=== PATIENT | male | born 1995 | race American Indian/Alaskan Native ===

== ENCOUNTER 2017-08-27 01:52 | Emergency (ER) | payer OTHER ==
[2017-08-27 01:58] VITALS: RESP 16; TEMP 98.1
[2017-08-27] MEDS ORDERED: Bupivacaine 0.25% Inj(30mL) IJ STA (02:25)
--- NOTE | 2017-08-27 02:54 | ED PDOC ---
HPI: Dental Pain/Injury Time Seen by Provider: 08/27/17 02:25 Chief Complaint (Nursing): Dental Pain Chief Complaint (Provider): Toothache History Per: Patient History/Exam Limitations: no limitations Onset/Duration Of Symptoms: Days (two) Current Symptoms Are (Timing): Still Present Severity: Moderate Quality: Sharp, Tightness, "Pain" Additional Complaint(s): Pt presents with a toothache in the lower right rear of his mouth that began two days ago but was manageable. He states that he was awoken from his sleep about two hours ago from the intense pain; pt denies fever, bleeding or discharge. He states that he has not yet obtained a private dentist. Past Medical History Reviewed: Historical Data, Nursing Documentation, Vital Signs Vital Signs: Last Vital Signs Temp 98.1 F 08/27/17 01:57 Pulse 62 08/27/17 01:57 Resp 16 08/27/17 01:57 BP 139/78 08/27/17 01:57 Pulse Ox 100 08/27/17 01:57 - Family History Family History: States: Unknown Family Hx - Home Medications Home Medications: Ambulatory Orders Medication Instructions Recorded Acetaminophen with Codeine 1 tab PO QID #18 tablet 08/27/17 [Tylenol with Codeine #3 Tablet] - Allergies Allergies/Adverse Reactions: Allergies Allergy/AdvReac Type Severity Reaction Status Date / Time No Known Allergies Allergy Verified 08/27/17 01:58 Review of Systems ROS Statement: Except As Marked, All Systems Reviewed And Found Negative ENT: Positive for: Other (tooth pain/dental pain) Physical Exam - Reviewed Nursing Documentation Reviewed: Yes Vital Signs Reviewed: Yes - Physical Exam Appears: Positive for: Well Head Exam: Positive for: ATRAUMATIC, NORMAL INSPECTION Skin: Positive for: Normal Color, Warm, Dry ENT: Positive for: Other (tooth #32 is noted to have a joe at the the dorsal side through aproximately 10percent of the enamel. There is no dentene apparent ; there is no infection, abscess, discharge, drainage, trauma, bleeding or exudate noted) Cardiovascular/Chest: Positive for: Regular Rate, Rhythm, Chest Non Tender. Negative for: Edema, Bradycardia, Tachycardia Respiratory: Positive for: Normal Breath Sounds. Negative for: Decreased Breath Sounds, Accessory Muscle Use, Crackles, Rales, Rhonchi, Stridor, Wheezing , Respiratory Distress Pulses-Carotid (L): 2+ Pulses-Carotid (R): 2+ - ECG O2 Sat by Pulse Oximetry: 100 Procedures - Time-Out Type of Procedure: Alveolar Nerve Block Site of Procedure: right alveolar nerve Correct Patient (with visual ID + MR# on ID Band): Yes Correct Procedure: Yes Correct Site Marked: NA X-Ray Marked: NA Medication Reconciliation / Bloodwork / Allergies Checked: Yes - Additional Procedures Progress: A lower alveolar nerve block with sublingual nerve affect was given using 1cc of bupivacaine 0.25% without epinephrine. The patient tolerated the procedure well, noted immediate pain relief and no side effects. Disposition - Clinical Impression Clinical Impression: Dental caries, Tooth ache - Patient ED Disposition Is Patient to be Admitted: No Doctor Will See Patient In The: Office Counseled Patient/Family Regarding: Diagnosis, Need For Followup, Rx Given - Disposition Referrals: Daniel Matos DDS [Doctor Dental Surgery] - Nieves Loomis, CHASIDY [Staff Provider] - Saul Posadas DDS [Medical Doctor] - Disposition: Routine/Home Disposition Time: 03:03 Condition: STABLE Prescriptions: Acetaminophen with Codeine [Tylenol with Codeine #3 Tablet] 1 tab PO QID #18 tablet Instructions: Tooth Decay, Adult (DC), Dental Pain (DC) Forms: [facility] (Kyr[place]z)
[2017-08-27 03:26] VITALS: BP 142/88; PULSE 60; O2SAT 98
== END 2017-08-27 03:32 | disposition home or self-care (01) ==
LOC: H.ER 01:52
DX: K02.9 Dental caries, unspecified (principal); K08.89 Other specified disorders of teeth and supporting structures